=== PATIENT | female | born 1935 | race Caucasian/White ===

== ENCOUNTER 2016-09-03 16:43 | Emergency (ER) | payer OTHER ==
--- NOTE | 2016-09-03 16:48 | EDPHY ---
H & P HPI/ROS: HPI CHIEF COMPLAINT: Hypertension, epistaxis HISTORY OF PRESENT ILLNESS: This patient very pleasant 81-year-old female significant past medical history for hypertension, thyroid disease, and has had a recent epistaxis. Tells me the past week she has had 3-4 different nose bleeds. She has not noticed that her blood pressures been high. She presents emergency room by EMS this evening that she developed epistaxis left Nare while playing tennis. She cannot get this. Her 5 hour she called 911 EMS brought her here. It was noted that her blood pressure was 200 systolic. Patient tells me that she has no complaints specifically no chest pain, no shortness of breath. Denies headache, numbness or tingling. Past Medical History: Hypertension, thyroid disease Past Surgical History: No recent surgical history Social History: Lives locally. Family History: Noncontributory ROS REVIEW OF SYSTEMS: A comprehensive 10 point review of systems is otherwise negative aside from elements mentioned in the history of present illness. Exam Constitutional triage nursing summary reviewed, vital signs reviewed, awake/ alert. Noted to be hypertensive Eyes normal conjunctivae and sclera, EOMI, PERRLA. HENT Left naris shows anterior fresh blood, right Hickman normal normal inspection , atraumatic, moist mucus membranes, no epistaxis, neck supple/ no meningismus, no raccoon eyes. Respiratory clear to auscultation bilaterally, normal breath sounds, no respiratory distress, no wheezing. Cardiovascular rate normal, regular rhythm, no murmur, no edema, distal pulses normal. Gastrointestinal soft, non-tender, no rebound, no guarding, normal bowel sounds, no distension, no pulsatile mass. Genitourinary no CVA tenderness. Musculoskeletal no midline vertebral tenderness, full range of motion, no calf swelling, no tenderness of extremities, no meningismus, good pulses, neurovascularly intact. Skin pink, warm, & dry, no rash, skin atraumatic. Neurologic awake, alert and oriented x 3, AAOx3, moves all 4 extremities equally, motor intact, sensory intact, CN II-XII intact, normal cerebellar, normal vision, normal speech. Psychiatric normal mood/affect. Heme/Lymph/Immune no lymphadenopathy. Differential Diagnosis: includes but is not limited to in a particular order, epistaxis, hypertensive urgency causing epistaxis, anterior naris epistaxis Medical Decision Making: Plan for this patient lower blood pressure 10 mg IV hydralazine, nasal clamp for 20 minutes to see if she rebleeds. May need back pain. Check basic blood work CBC and electrolytes. Re-evaluation: 1740: re-evaluation at this time patient still has left anterior Hickman bleeding. A clamp was applied for 20-30 minutes. It did not stop her bleeding. She was given IV hydralazine 10 mg this did improve her blood pressure to 160 systolic. She is resting comfortably. I did cauterize with silver nitrate stick her left anterior nose bleed. Will re-evaluate shortly. 1832: Re-evaluation this time I did remove her nasal clamp. I did cauterize her left knee earlier. No further bleeding. Blood pressure down 160s. Patient resting comfortably no acute distress. Will continue monitor micturition of further nose bleeding. 1932: re-evaluation epistaxis has resolved. No recurrence. Blood pressure down 160s. Home BP medications given. She understands to return emergency room if there is any worsening symptoms questions or concerns. This includes persistent hypertension, headache, chest pain, shortness of breath recurrent epistaxis. Source: Patient, EMS Constitutional: Initial Vital Signs Temperature (C) 36.6 C 09/03/16 16:50 Heart Rate 92 09/03/16 16:50 Respiratory Rate 18 09/03/16 16:50 Blood Pressure 220/110 H 09/03/16 16:50 O2 Sat (%) 94 09/03/16 16:50 O2 Delivery Mode Room Air Allergies/Adverse Reactions: contrast dye Allergy (Uncoded 09/03/16 16:53) Medical Decision Making - Data Points Laboratory Results: Laboratory Results 09/03/16 16:45 09/03/16 16:45 09/03/16 09/03/16 16:45 16:45 WBC 7.18 10^3/uL 10^3/uL (3.80-9.50) RBC 4.11 10^6/uL L 10^6/uL (4.18-5.33) Hgb 13.7 g/dL g/dL (12.6-16.3) Hct 39.4 % % (38.0-47.0) MCV 95.9 fL fL (81.5-99.8) MCH 33.3 pg pg (27.9-34.1) MCHC 34.8 g/dL g/dL (32.4-36.7) RDW 12.4 % % (11.5-15.2) Plt Count 258 10^3/uL 10^3/uL (150-400) MPV 9.4 fL fL (8.7-11.7) Neut % (Auto) 57.8 % % (39.3-74.2) Lymph % (Auto) 27.4 % % (15.0-45.0) [place] % (Auto) 7.9 % % (4.5-13.0) Eos % (Auto) 5.3 % % (0.6-7.6) Baso % (Auto) 1.3 % % (0.3-1.7) Nucleat RBC Rel Count 0.0 % % (0.0-0.2) Absolute Neuts (auto) 4.15 10^3/uL 10^3/uL (1.70-6.50) Absolute Lymphs (auto) 1.97 10^3/uL 10^3/uL (1.00-3.00) Absolute Monos (auto) 0.57 10^3/uL 10^3/uL (0.30-0.80) Absolute Eos (auto) 0.38 10^3/uL 10^3/uL (0.03-0.40) Absolute Basos (auto) 0.09 10^3/uL 10^3/uL (0.02-0.10) Absolute Nucleated RBC 0.00 10^3/uL 10^3/uL (0-0.01) Immature Gran % 0.3 % % (0.0-1.1) Immature Gran # 0.02 10^3/uL 10^3/uL (0.00-0.10) Sodium 138 mEq/L mEq/L (134-144) Potassium 3.9 mEq/L mEq/L (3.5-5.2) Chloride 105 mEq/L mEq/L (97-110) Carbon Dioxide 22 mEq/l mEq/l (22-31) Anion Gap 11 mEq/L mEq/L (8-16) BUN 30 mg/dL H mg/dL (7-23) Creatinine 1.0 mg/dL mg/dL (0.6-1.0) Estimated GFR 53 Glucose 118 mg/dL H mg/dL (70-100) Calcium 10.3 mg/dL mg/dL (8.5-10.4) Medications Given: Discontinued Medications Hydralazine HCl (Apresoline) 10 mg IVP EDNOW ONE Stop: 09/03/16 16:59 Last Admin: 09/03/16 17:08 Dose: 10 mg Hydrochlorothiazide (Hydrochlorothiazide) 25 mg PO EDNOW ONE Stop: 09/03/16 18:31 Last Admin: 09/03/16 18:24 Dose: 25 mg Sodium Chloride (Ns) 500 mls @ 0 mls/hr IV ONCE ONE PRN Reason: Wide Open Stop: 09/03/16 16:59 Last Admin: 09/03/16 17:08 Dose: 500 mls Losartan Potassium (Cozaar) 100 mg PO EDNOW ONE Stop: 09/03/16 18:31 Last Admin: 09/03/16 18:24 Dose: 100 mg Oxymetazoline HCl (Afrin Nasal [place]) 2 sprays E[place] EDNOW ONE Stop: 09/03/16 17:10 Last Admin: 09/03/16 17:13 Dose: 2 spray Silver Nitrate/Potassium Nitrate (Silver Nitrate Applicator) 2 each TP EDNOW ONE Stop: 09/03/16 17:10 Last Admin: 09/03/16 17:13 Dose: 2 each Departure - Departure Disposition: Home, Routine, Self-Care Clinical Impression: Epistaxis Hypertension Qualifiers: Hypertension type: essential hypertension Qualified Code(s): I10 - Essential ( primary) hypertension Condition: Good Instructions: Nosebleed (ED), Hypertension (ED) Additional Instructions: 1.Monitor blood pressure closely over the next week. If her finding the getting high blood pressures please follow up with her primary care doctor 2.Should check her blood pressure twice a day once at night and once in the morning 2 hours after taking blood pressure medication. Referrals: Patient,NotPresent [Unknown] - As per Instructions
[2016-09-03] MEDS ORDERED: NS 500 ML IV ONE (16:58)
[2016-09-03] MEDS ORDERED: hydrALAZINE 20 MG/ML VIAL IVP ONE (16:58)
[2016-09-03] MEDS ORDERED: OXYMETAZOLINE 30 ML NASAL SPRAY ONE (17:00)
[2016-09-03] MEDS ORDERED: SILVER NITRATE APPLICATOR 1 APPL TP ONE ×2 (17:01→17:09)
[2016-09-03 17:02] LABS: % IMMATURE GRANULYOCYTES 0.3 % (0.0-1.1); ABSOLUTE IMMATURE GRANULOCYTES 0.02 10^3/uL (0.00-0.10); ADD DIFF? NO; ADD MORPH? NO; ADD SCAN? NO; ATYPICAL LYMPHOCYTE FLAG 0 (0-99); FRAGMENT RBC FLAG 0 (0-99); HEMATOCRIT 39.4 % (38.0-47.0); HEMOGLOBIN 13.7 g/dL (12.6-16.3); LEFT SHIFT FLG 0 (0-99); LIPEMIA HEMOLYSIS FLAG 90 (0-99); MEAN CELL HEMOGLOBIN 33.3 pg (27.9-34.1); MEAN CELL HEMOGLOBIN CONCENTR. 34.8 g/dL (32.4-36.7); MEAN CELL VOLUME 95.9 fL (81.5-99.8); MEAN PLATELET VOLUME 9.4 fL (8.7-11.7); PLATELET CLUMPS FLAG 20 (0-99); PLATELET COUNT 258 10^3/uL (150-400); RED BLOOD CELL COUNT 4.11 10^6/uL (4.18-5.33); RED CELL DISTRIBUTION WIDTH 12.4 % (11.5-15.2)
[2016-09-03] MEDS ORDERED: OXYMETAZOLINE 30 ML NASAL SPRAY EACHNARE ONE (17:09)
[2016-09-03 17:18] LABS: ANION GAP 11 mEq/L (8-16); CALCIUM 10.3 mg/dL (8.5-10.4); CARBON DIOXIDE 22 mEq/l (22-31); CHLORIDE 105 mEq/L (97-110); GLOMERULAR FILTRATION RATE 53; GLUCOSE 118 mg/dL (70-100); POTASSIUM 3.9 mEq/L (3.5-5.2); SODIUM 138 mEq/L (134-144)
[2016-09-03 17:28] VITALS: O2SAT 96
[2016-09-03] MEDS ORDERED: LOSARTAN POTASSIUM 50 MG TAB PO ONE (18:30)
[2016-09-03] MEDS ORDERED: HYDROCHLOROTHIAZIDE 25 MG TAB PO ONE (18:30)
[2016-09-03 19:27] VITALS: BP 178/84; PULSE 72; RESP 15
[2016-09-03 19:46] VITALS: TEMP 98.2
== END 2016-09-03 19:45 | disposition home or self-care (01) ==
LOC: EDUNIT#
PROC: 2Y41X5Z Packing of Nasal Region using Packing Material (ICD-10-PCS; principal; 2016-09-03)
DX: R04.0 Epistaxis (principal); I10 Essential (primary) hypertension
CPT/HCPCS: 30901; 96374; 99284; J0360